=== PATIENT | female | born 1960 | race Caucasian/White ===

== ENCOUNTER 2024-12-03 14:47 | Emergency (ER) | payer OTHER, SELFPAY ==
[2024-12-03 14:55] VITALS: BP 146/88
--- NOTE | 2024-12-03 17:52 | ED.GENMED ---
History of Present Illness
General
Chief Complaint: Musculo-Skeletal Complaint
Source: patient
Exam Limitations: none
Time Seen by Provider: 12/03/24 17:44
History of Present Illness
History of Present Illness:
64yoF with a history of obesity, type 2 diabetes, hypertension presenting for evaluation of right foot injury. Patient stepped on a dog toy yesterday and rolled her ankle. She is presenting with pain and swelling to the lateral foot and ankle.
She has been applying ngozi wrap with improvement. No paresthesias.
Past History
Past History
ED Past Medical History: Negative IDDM
Social History
Tobacco: Non-smoker
Alcohol: None
Drug: None
Personal: Other (Noncontributory)
Living: with family
Employment: Employed
Family History
Family History: Other (Noncontributory)
Phy Exam
General Physical Exam
General Presentation: well appearing and no apparent distress
General Skin: warm and dry
General Habitus: normal
General Mental: alert
ENT Exam
ENT Exam: normocephalic
Pulmonary Exam
Pulmonary Exam: no respiratory distress
Neurological Exam
Neurological Exam: alert
[place] Coma Scale
Eye Opening: Spontaneous
Verbal Response: Oriented
Motor Response: Obeys Commands
GCS Total Score: 15
Musculoskeletal Exam
Musculoskeletal Exam: other (R ankle: +Swelling noted to lateral foot and lateral malleolus with tenderness. No deformity. Skin intact. ROM is normal. 2+ DP pulse and sensation intact. )
Skin Exam
Skin Exam: normal color and warm/dry
Psychiatric Exam
Psychiatric Exam: normal mood/affect
Course
Orders/Labs/Results
Orders:
Orders
12/03/24 14:58
Foot, Right 3 View [CR Foot - Right Min 3 Views] Urgent
Comment:
Reason For Exam: pain
12/03/24 17:50
Ankle, Right 3 view CR [CR Ankle - Right Min 3 Views *] Urgent
Comment:
Reason For Exam: injury
Vital Signs
Initial and Last Documented VS:
Initial Vital Signs
Temp Pulse Resp BP Pulse Ox
98 F 113 20 146/88 95
12/03/24 14:55 12/03/24 14:55 12/03/24 14:55 12/03/24 14:55 12/03/24 14:55
Last Documented Vital Signs
Temp Pulse Resp BP Pulse Ox
98 F 113 20 146/88 95
12/03/24 14:55 12/03/24 14:55 12/03/24 14:55 12/03/24 14:55 12/03/24 14:55
MDM/Problems Addressed
Differential Diagnosis Includes:
64yoF here with R ankle/foot pain after an injury yesterday. Swelling and tenderness noted on exam without deformity. RLE is neurovascularly intact. Differential diagnosis includes: sprain vs. fracture
X-rays of foot and ankle obtained which are negative for fractures. Supportive care discussed including RICE. Patient has been using crutches PRN. Advised f/u with orthopedics if symptoms persist.
*Critical Care Note
Total Time (30-74mins, 75-104mins- exclusive of procedures): Not Applicable
ED Attending Note
-
Portions of this chart may have been created with voice recognition software.� Occasional wrong word or��sound alike� substitutions may have occurred due to the inherent limitations of voice recognition software.
Discharge Plan
Departure
Patient Disposition: Home (Routine Discharge)
Date of Disposition: 12/03/24
Time of Disposition: 18:02
Patient with high blood pressure during this ER visit?: Yes
Discharge Problem:
Right foot sprain
Instructions: Sprain (DC)
Prescriptions:
No Action
hydrocodone-acetaminophen 1 TABLET tablet
1 tab PO Q4HPRN PRN (Reason: pain) Qty: 10 0RF
ibuprofen 600 MG tablet
600 mg PO Q6 PRN (Reason: pain) Qty: 20 0RF
amoxicillin-pot clavulanate 1 TABLET tablet
1 tab PO Q12 Qty: 20 0RF
Referrals:
Daniel Owusu MD [Active, Orthopedics]
UNKNOWN - PT DOES,NOT KNOW [Unknown Provider]
Activity Restrictions/Additional Instructions:
Rest, ice, compress, and elevate your leg to help with swelling. Continue using crutches as needed.
Please follow-up with orthopedics as needed.
Interventions
Interventions:
*Risk Screen - Suicide Last Done: 12/03/24 14:55
*General Assessment Last Done: 12/03/24 14:55
*ED- Fall Risk Assessment Last Done: 12/03/24 14:55
*ED COVID-19 Vaccine History Last Done: 12/03/24 14:55
*Nursing Disposition Last Done: 12/03/24 18:08
ED-Musculoskeletal Assessment Last Done: 12/03/24 17:57
Discharge Date and Time
Discharge Date/Time: 12/03/24 18:12
Print Language: SPANISH
== END 2024-12-03 18:12 | disposition home or self-care (01) ==
LOC: EMR 14:47
PROVIDERS: EMERGENCY PHYSICIAN Emergency Medicine; FAMILY PHYSICIAN Internal Medicine Nephrology
DX: S93.601A Unspecified sprain of right foot, initial encounter (principal); X50.1XXA Overexertion from prolonged static or awkward postures, initial encounter; E66.9 Obesity, unspecified; E11.9 Type 2 diabetes mellitus without complications; I10 Essential (primary) hypertension
CPT/HCPCS: 99283; 73610; 73630